=== PATIENT | female | born 1960 | race African-American/Black ===

== ENCOUNTER 2017-05-21 03:45 | Inpatient (IN) | payer OTHER, SELFPAY ==
[2017-05-21 04:36] LABS: #Basophils 0.1 thou/uL (0.0-0.2); #Eosinphils 0.2 thou/uL (0.0-0.7); #Lymphocytes 2.8 thou/uL (1.20-3.40); #Monocytes 0.6 thou/uL (0.11-0.59); #Neutrophils 4.1 thou/uL (1.40-6.50); %Basophils 0.9 % (0.0-1.0); %Eosinophils 2.5 % (0.0-10.0); %Monocytes 7.6 % (0.0-10.0); Hematocrit 32.6 % (36.0-47.0); Mean Platelet Volume 6.7 fL (7.4-10.4); Red Blood Cell (RBC) Count 3.63 mill/uL (4.20-5.40); White Blood Cell (WBC) Count 7.7 thou/uL (4.8-10.8)
[2017-05-21 04:58] LABS: ALT (SGPT) 10 U/L (8-55); AST (SGOT) 10 U/L (5-34); Alkaline Phosphatase 80 U/L (40-150); Anion Gap 12 mmol/L (10-20); BUN (Urea Nitrogen) 17 mg/dL (9.8-20.1); Bilirubin, Total 0.3 mg/dL (0.2-1.2); Calc. Creatinine Clearance 0 mL/min (70-130); Calcium 9.3 mg/dL (7.8-10.44); Carbon Dioxide 27 mmol/L (22-29); Chloride 105 mmol/L (98-107); Estimated GFR-MDRD 74; Protein, Total 7.7 g/dL (6.0-8.3)
[2017-05-21 05:03] LABS: Troponin I Less than 0.010 ng/mL (< 0.028)
[2017-05-21] MEDS ORDERED: Furosemide 40 MG/4 ML VIAL ONE (05:12)
[2017-05-21] MEDS ORDERED: Nitroglycerin 0.4 MG TAB (25 Tab Bottle) ONE (05:12)
[2017-05-21] MEDS ORDERED: Nitroglycerin 2% Ointment 1 INCH/1 GM Packet ONE (05:12)
[2017-05-21] MEDS ORDERED: hydrALAZINE 20 MG/ML VIAL ONE (06:31)
--- NOTE | 2017-05-21 06:54 | HP ---
DATE OF ADMISSION: 05/21/2017 PRIMARY CARE PHYSICIAN: [facility] (Linda Avalos NP). CHIEF COMPLAINT: Shortness of breath. HISTORY OF PRESENT ILLNESS: Patient is a 56-year-old female with hypertension, diabetes mellitus type 2, dyslipidemia, and chronic low back pain on nonsteroidal anti-inflammatory drugs, presented to the emergency room with shortness of breath with bilateral lower extremity swelling of 1 week duration. Over the last one week, the patient developed gradual worsening of shortness of breath along with leg swelling and abdominal distention. Currently, the patient uses 5 pillows to sleep. The shortness of breath is worse on lying down. Patient denies any excessive fluid intake. Her maximum fluid intake in a day is around 70-80 ounce. She denies recent immobilization. She recently came from [place]. She used to be on Lasix last year; however, that was discontinued by her primary care physician. No chest pain, palpitations, lightheadedness, dizziness reported. In the emergency room, initial vital signs showed temperature 98.2, respirations 18, pulse of 77, blood pressure 207/82 with O2 saturation 90 on room air that improved with O2 supplementation. Chest x-ray showed pulmonary vascular congestion. Her EKG showed sinus rhythm with left ventricular hypertrophy. She received 80 mg IV Lasix with aspirin, sublingual nitroglycerin and 1 inch nitro patch was placed. PAST MEDICAL HISTORY: 1. Diabetes mellitus type 2. 2. Hypertension. 3. Dyslipidemia. 4. Chronic low back pain on Aleve on a daily basis. 5. Obesity. 6. Mild coronary artery disease. The patient had a cardiac catheterization in 2010 that showed 20%-30% stenosis in the LAD, 20%-30% stenosis in the mid circumflex. RCA and left main was normal. Ejection fraction at that time was 50%-55%. PAST SURGICAL HISTORY: 1. Cardiac catheterization. 2. Carpal tunnel surgery. 3. Bilateral tubal ligation. 4. Appendectomy. ALLERGIES: Patient is allergic to: 1. CODEINE. 2. LISINOPRIL that causes cough. 3. ACTOS. CURRENT HOME MEDICATIONS: Levemir insulin 30 units in the morning, 40 at night ; aspirin 81 mg daily; metformin 1000 mg b.i.d.; amlodipine 10 mg daily; metoprolol 25 mg b.i.d.; Aleve on a daily basis. SOCIAL HISTORY: Patient currently lives at home with her spouse. No current use of tobacco, alcohol or drug use. FAMILY HISTORY: Mother with colon cancer, father with heart disease and hypertension. REVIEW OF SYSTEMS: The following complete review of systems was negative, unless otherwise mentioned in the HPI or below: Constitutional: Weight loss or gain, ability to conduct usual activities. Skin: Rash, itching. Eyes: Double vision, pain. ENT/Mouth: Nose bleeding, neck stiffness, pain, tenderness. Cardiovascular: Palpitations, dyspnea on exertion, orthopnea. Respiratory: Shortness of breath, wheezing, cough, hemoptysis, fever or night sweats. Gastrointestinal: Poor appetite, abdominal pain, heartburn, nausea, vomiting, constipation, or diarrhea. Genitourinary: Urgency, frequency, dysuria, nocturia. Musculoskeletal: Pain, swelling. Neurologic/Psychiatric: Anxiety, depression. Allergy/Immunologic: Skin rash, bleeding tendency. PHYSICAL EXAMINATION: VITAL SIGNS: As discussed above. GENERAL: A 56-year-old female with shortness of breath. Blood pressure at this time is 229/124. HEENT: Head is atraumatic, normocephalic. Sclerae are anicteric. Moist mucous membranes. No oral lesion. Patient is able to complete short phrases. NECK: Supple. No neck stiffness. Neck veins cannot be reliably assessed due to body habitus. LUNGS: Showed bibasilar crackles with scattered rhonchi. No wheezing. Lungs were symmetrical. HEART: S1, S2 present. Regular rate and rhythm. A 2/6 systolic murmur over the mitral area. ABDOMEN: Soft, obese, bowel sounds present. EXTREMITIES: A 3+ edema in bilateral lower extremities. No calf tenderness. Homans' sign was negative. SKIN: Warm and dry. LYMPH NODES: No palpable lymph nodes in the neck. PERIPHERAL VASCULAR: Radial pulses palpable bilaterally. MUSCULOSKELETAL: No joint swelling or tenderness. LABORATORY DATA AND X-RAY FINDINGS: CBC showed WBC 7.7 with hemoglobin 10.8, hematocrit 32.6, platelets 394. Chemistries showed sodium 140, potassium 4.1, chloride 105, bicarbonate 27, BUN 17, creatinine 0.94, glucose 164. BNP 210. Troponins were normal. EKG and chest x-ray by my review as discussed above. IMPRESSION: 1. Acute hypoxic respiratory failure secondary to acute on chronic congestive heart failure (new onset). Suspected diastolic. 2. Hypertensive crisis. 3. Diabetes mellitus type 2. 4. Hypertension. 5. Coronary artery disease. 6. Chronic low back pain. 7. Dyslipidemia. 8. Obesity, BMI to be calculated. 9. Chronic kidney disease stage 2. 10. Anemia, chronic. PLAN: The patient will be monitored on the telemetry unit as inpatient. The patient will require 3-4 days for stabilization. She is volume overloaded at this time. Volume restriction. We will repeat an echocardiogram. Hold metformin for now. Insulin sliding scale. Continue diuretics with nitropatch. We will add low dose losartan. Patient is unable to tolerate lisinopril due to cough. We will add low dose Procardia-XL. Change metoprolol to carvedilol for better blood pressure control. Deep venous thrombosis prophylaxis with Lovenox. Plan of care was discussed with the patient and the family at the bedside. They stated understanding. MTDD
[2017-05-21] MEDS ORDERED: Senokot 8.6 MG TAB PO PRN (08:12)
[2017-05-21] MEDS ORDERED: Calcium Carbonate 500 MG ChewTAB PO PRN (08:12)
[2017-05-21] MEDS ORDERED: cloNIDine 0.1 MG TAB PO PRN (08:12)
[2017-05-21] MEDS ORDERED: Ondansetron HCl/PF 4 MG/2 ML Vial IVP PRN (08:12)
[2017-05-21] MEDS ORDERED: Diabetic Tussin 200 MG/10 ML UDCUP PO PRN (08:12)
[2017-05-21] MEDS ORDERED: Eucerin (Mineral Oil/Petrolatum,White) 30 gm Jar TOP PRN (08:12)
[2017-05-21] MEDS ORDERED: Nitroglycerin 0.4 MG TAB (25 Tab Bottle) PO PRN (08:12)
[2017-05-21] MEDS ORDERED: Ondansetron ODT 4 MG TAB PO PRN (08:12)
[2017-05-21] MEDS ORDERED: Labetalol HCl 100 MG/20 ML VIAL SLOW IVP PRN (08:12)
[2017-05-21] MEDS ORDERED: hydrALAZINE 20 MG/ML VIAL SLOW IVP PRN (08:12)
[2017-05-21] MEDS ORDERED: Dextrose 5% in Water 1,000 ML IV PRN (08:12)
[2017-05-21] MEDS ORDERED: Dextrose 50% Abboject 50 ML SYRINGE SLOW IVP PRN (08:12)
[2017-05-21 08:55] LABS: Troponin I 0.024 ng/mL (< 0.028)
[2017-05-21] MEDS: Aspirin 81 mg Enteric Coated Tablet PO SCH (09:31)
[2017-05-21] MEDS: Docusate 100 MG CAP PO SCH ×2 (09:31→21:13)
[2017-05-21] MEDS: Carvedilol 6.25 MG TAB PO SCH ×2 (09:31→17:21)
[2017-05-21] MEDS: NIFEdipine XL 30 MG TAB PO SCH (09:32)
[2017-05-21] MEDS: Insulin Detemir 100 UNITS/ML 10 UNITS in Pre-Filled Syringe 1 EACH SC SCH ×2 (09:32→21:14)
[2017-05-21] MEDS: Losartan 25 MG TAB PO SCH (09:32)
--- NOTE | 2017-05-21 09:32 | RAD ---
UPRIGHT PORTABLE CHEST 1 VIEW: HISTORY: A 56-year-old female with a history of cough. Shortness of breath for 2 days. COMPARISON: 06/22/14. FINDINGS: Minimal cardiomegaly with bilateral vascular congestion without confluent pneumonia or overt edema. IMPRESSION: Cardiomegaly with bilateral vascular congestion. Continued short-term followup. POS: [facility]
[2017-05-21] MEDS: Famotidine 20 MG TAB PO SCH ×2 (09:33→21:13)
[2017-05-21 11:06] LABS: Troponin I Less than 0.010 ng/mL (< 0.028)
[2017-05-21] MEDS: Nitroglycerin 2% Ointment 1 INCH/1 GM Packet TOP SCH ×3 (12:15→23:45)
[2017-05-21] MEDS: Furosemide 40 MG/4 ML VIAL SLOW IVP SCH (14:31)
[2017-05-21] MEDS: Insulin Regular 300 UNITS/3 ML VIAL SC PRN ×2 (18:34→21:19)
[2017-05-21] MEDS ORDERED: FLU VACC QS2017-18 36 mo. & older 0.5 ML SYRINGE IM ONE (21:00)
[2017-05-21] MEDS ORDERED: Enoxaparin Sodium 40 MG/0.4 ML SYRINGE SC SCH (21:00)
[2017-05-21] MEDS: Acetaminophen 325 MG TAB PO PRN (23:45)
[2017-05-22] MEDS: Furosemide 40 MG/4 ML VIAL SLOW IVP SCH (05:24)
[2017-05-22] MEDS: Nitroglycerin 2% Ointment 1 INCH/1 GM Packet TOP SCH (05:24)
[2017-05-22 06:06] VITALS: BMI 37.6
[2017-05-22 06:06] LABS: Anion Gap 17 mmol/L (10-20); BUN (Urea Nitrogen) 20 mg/dL (9.8-20.1); Calc. Creatinine Clearance 86 mL/min (70-130); Calcium 8.4 mg/dL (7.8-10.44); Carbon Dioxide 25 mmol/L (22-29); Chloride 103 mmol/L (98-107); Estimated GFR-MDRD 60; Phosphorus 4.4 mg/dL (2.3-4.7)
--- NOTE | 2017-05-22 08:25 | PDOC.PN ---
- Subjective Encounter Start Date: 05/22/17 Encounter Start Time: 08:24 Patient seen and examined. No new complaints. No overnight events. SOB better. Ambulating in hallway. No CP. - Objective Resuscitation Status: Resuscitation Status FULL:Full Resuscitation MAR Reviewed: Yes Vital Signs & Weight: Vital Signs (12 hours) Temp Pulse Resp BP Pulse Ox 05/22/17 04:00 98.2 F 77 18 152/68 H 95 05/22/17 00:00 97.9 F 83 20 155/76 H 94 L Weight Weight 219 lb 4.8 oz I&O: 05/21/17 05/22/17 05/23/17 06:59 06:59 06:59 Intake Total 1860 Output Total 1700 Balance 160 Result Diagrams: 05/21/17 04:25 05/22/17 04:49 Additional Labs: Accuchecks 05/21/17 05/21/17 05/21/17 20:16 16:39 11:21 POC Glucose 270 H 199 H 165 H EKG Reviewed by me: Yes (Tele SR) Phys Exam - Physical Examination Constitutional: NAD Neck: no JVD Respiratory: no wheezing, no rhonchi Minimal rales at bases, Symmetrical Cardiovascular: RRR, no rub no heaves/pulsations Gastrointestinal: soft, non-tender, no distention, positive bowel sounds Musculoskeletal: edema present (improving.) Neurological: non-focal, normal sensation, moves all 4 limbs Psychiatric: normal affect, A&O x 3 Dx/Plan - Plan DVT proph w/lovenox, DVT proph w/SCDs IMPRESSION: 1. Acute hypoxic respiratory failure secondary to acute on chronic congestive heart failure (new onset). 2. Hypertensive crisis. 3. Diabetes mellitus type 2. 4. Hypertension. 5. Coronary artery disease. 6. Chronic low back pain. 7. Dyslipidemia. 8. Obesity, BMI 37.6 9. Chronic kidney disease stage 2. 10. Anemia, chronic. PLAN: * Change Lasix to PO * Cont Losartan * AM labs * Cont fluid restriction * CV team following * Cont sliding scale * Cont current meds as below * consult Cardiology for med optimization. * DC NTG patch Review of Systems - Review of Systems Respiratory: negative: Cough, Dry, Shortness of Breath, Hemoptysis, SOB with Excertion, Pleuritic Pain, Sputum, Wheezing Cardiovascular: negative: Chest Pain, Palpitations, Orthopnea, Paroxysmal Noc. Dyspnea, Edema, Light Headedness, Other Gastrointestinal: negative: Nausea, Vomiting, Abdominal Pain, Diarrhea, Constipation, Melena, Hematochezia, Other - Medications/Allergies Allergies/Adverse Reactions: Allergies Allergy/AdvReac Type Severity Reaction Status Date / Time codeine Allergy Verified 02/07/15 18:02 lisinopril Allergy COUGH Verified 02/07/15 18:02 pioglitazone HCl [From Actos] Allergy Verified 02/07/15 18:02 Medications: Current Medications Acetaminophen (Tylenol) 650 mg PO Q4H PRN PRN Reason: Headache/Fever or Pain Last Admin: 05/21/17 23:45 Dose: 650 mg Albuterol/Ipratropium (Duoneb) 3 ml NEB [id number] PRN PRN Reason: SOB &/or Wheezing Aspirin (Ecotrin) 81 mg PO DAILY [facility] Last Admin: 05/21/17 09:31 Dose: 81 mg Calcium Carbonate (Tums) 1,000 mg PO Q4H PRN PRN Reason: Heartburn or Indigestion Carvedilol (Coreg) 12.5 mg PO BID-[facility] Last Admin: 05/21/17 17:21 Dose: 12.5 mg Clonidine (Catapres) 0.1 mg PO Q4H PRN PRN Reason: Systolic BP > 180/ DBP >100 Dextrose/Water (Dextrose 50%) 25 gm SLOW IVP PRN PRN PRN Reason: Hypoglycemia Docusate Sodium (Colace) 100 mg PO BID [facility] Last Admin: 05/21/17 21:13 Dose: 100 mg Famotidine (Pepcid) 20 mg PO BID [facility] Last Admin: 05/21/17 21:13 Dose: 20 mg Furosemide (Lasix) 40 mg PO DAILY-[facility] Glucagon (Glucagon) 1 mg IM PRN PRN PRN Reason: Hypoglycemia Guaifenesin (Robitussin Sf) 200 mg PO Q4H PRN PRN Reason: Cough Hydralazine HCl (Apresoline) 10 mg SLOW IVP Q4H PRN PRN Reason: SBP Greater Than 180 Dextrose/Water (D5w) 1,000 mls @ 0 mls/hr IV .Q0M PRN; As Directed PRN Reason: Hypoglycemia Insulin Detemir 10 units/ (Miscellaneous Medication) 0.1 mls @ 0 mls/hr SC HS [facility] Last Admin: 05/21/17 21:14 Dose: 0.1 mls Insulin Detemir 10 units/ (Miscellaneous Medication) 0.1 mls @ 0 mls/hr SC QAM [facility] Last Admin: 05/21/17 09:32 Dose: 0.1 mls Insulin Human Regular (Humulin R) 0 units SC .MILD SLIDING SCALE PRN PRN Reason: Mild Correctional Scale Last Admin: 05/21/17 18:34 Dose: 2 unit Insulin Human Regular (Humulin R) 0 units SC .BEDTIME SLIDING SC PRN PRN Reason: Bedtime Correctional Scale Last Admin: 05/21/17 21:19 Dose: 3 unit Labetalol HCl (Normodyne) 10 mg SLOW IVP Q1H PRN PRN Reason: Systolic BP > 180 Losartan Potassium (Cozaar) 12.5 mg PO DAILY [facility] Last Admin: 05/21/17 09:32 Dose: 12.5 mg Mineral Oil/White Petrolatum (Eucerin Cream) 0 gm TOP BIDPRN PRN PRN Reason: Dry Skin Nifedipine (Procardia Xl) 30 mg PO DAILY [facility] Last Admin: 05/21/17 09:32 Dose: 30 mg Nitroglycerin (Nitrostat) 0.4 mg PO Q5MIN PRN PRN Reason: Chest Pain Ondansetron HCl (Zofran Odt) 4 mg PO Q6H PRN PRN Reason: Nausea/Vomiting Ondansetron HCl (Zofran) 4 mg IVP Q6H PRN PRN Reason: Nausea/Vomiting Senna (Senokot) 2 tab PO HSPRN PRN PRN Reason: Constipation
[2017-05-22] MEDS: Carvedilol 6.25 MG TAB PO SCH (09:09)
[2017-05-22] MEDS: Aspirin 81 mg Enteric Coated Tablet PO SCH (09:09)
[2017-05-22] MEDS: Losartan 25 MG TAB PO SCH (09:09)
[2017-05-22] MEDS: Docusate 100 MG CAP PO SCH ×2 (09:10→21:07)
[2017-05-22] MEDS: Insulin Detemir 100 UNITS/ML 10 UNITS in Pre-Filled Syringe 1 EACH SC SCH ×2 (09:10→21:07)
[2017-05-22] MEDS: Famotidine 20 MG TAB PO SCH ×2 (09:10→21:07)
[2017-05-22] MEDS: NIFEdipine XL 30 MG TAB PO SCH (09:10)
--- NOTE | 2017-05-22 09:25 | ULT ---
BILATERAL LOWER EXTREMITY VENOUS DOPPLER ULTRASOUND: Date: 05/22/17 HISTORY: Bilateral lower extremity edema TECHNIQUE: Pascal scale ultrasound with color flow and spectral Doppler imaging of the deep venous systems of the lower extremities was performed bilaterally. FINDINGS: There is good flow, compression, and augmentation noted in the common femoral, femoral, deep femoral , popliteal, posterior tibial, and greater saphenous veins on either side. IMPRESSION: No evidence of deep venous thrombosis in either lower extremity. POS: [facility]
[2017-05-22] MEDS ORDERED: Carvedilol 3.125 MG TAB PO SCH ×2 (10:00→21:00)
[2017-05-22] MEDS: Acetaminophen 325 MG TAB PO PRN (14:07)
--- NOTE | 2017-05-22 15:31 | CON ---
DATE OF CONSULTATION: 05/22/2017 REASON FOR CONSULTATION: Diastolic heart failure. HISTORY OF PRESENT ILLNESS: Ms. Figueroa is a 56-year-old woman who I have not seen and evaluated in over 5 years. She recently presented with congestive heart failure type symptoms. She has under gone echo Doppler and found to have a normal ejection fraction. She states she went to [place] and spent a week. There was significant dietary indiscretion while in [place]. No chest pain or pressure or other associated symptoms. She is now near her baseline afte r diuresis. PAST MEDICAL AND SURGICAL HISTORY: 1. Diabetes mellitus. 2. Hyperlipidemia. 3. Hypertension. 4. Previous angio showed congestion, mild coronary artery disease in 2010. 5. Carpal tunnel release. 6. Bilateral tubal ligation. 7. Appendectomy. ALLERGIES: CODEINE, LISINOPRIL, LACTOSE. HOME MEDICATIONS: Insulin, amlodipine, metoprolol, metformin, aspirin. SOCIAL HISTORY: No current tobacco, alcohol or drug use. REVIEW OF SYSTEMS: Ten point review of systems reviewed and otherwise negative. PHYSICAL EXAMINATION: VITAL SIGNS: Blood pressure 142/72, pulse 72, temperature afebrile. GENERAL: Patient is a pleasant female who is in no acute distress. The patient appears her stated a ge. NEUROLOGIC: The patient is alert and oriented times 3 with no focal neurologic deficits. HEENT: Sclerae without icterus. Mouth has moist mucous membranes with normal pallor. NECK: No JVD. Carotid upstroke brisk. No bruits bilaterally. LUNGS: Clear to auscultation with unlabored respirations. BACK: No scoliosis or kyphosis. CARDIAC: Regular rate and rhythm with normal S1 and S2. No S3 or S4 noted. No significant rubs, mu rmurs, thrills, or gallops noted throughout the precordium. PMI is not displaced. There is no para sternal heave. ABDOMEN: Soft, nontender, nondistended. No peritoneal signs present. No hepatosplenomegaly. No ab normal striae. EXTREMITIES: 2+ femoral and 2+ dorsalis pedis pulses. No cyanosis, clubbing, or edema. SKIN: No gross abnormalities. PERTINENT LABORATORY: Hemoglobin 10.8, hematocrit 32.6, creatinine 1.13, BNP 210. IMPRESSION: 1. Acute on chronic diastolic heart failure. 2. Hypertension. RECOMMENDATIONS: Ms. Figueroa has diuresed. She appears to be improving. At this point will add a low dose beta-sebastian therapy in addition to low dose spironolactone. There have been very few medi cines to assist with diastolic dysfunction with some evidence suggesting aldosterone antagonist ____ _, beta-sebastian may be beneficial. The Lasix has been switched to p.o. From my standpoint she is s table, it would be okay to discharge home in a.m. with close outpatient follow up.
[2017-05-22] MEDS: Insulin Regular 300 UNITS/3 ML VIAL SC PRN ×2 (16:59→21:07)
[2017-05-23 05:11] LABS: #Basophils 0.1 thou/uL (0.0-0.2); #Eosinphils 0.1 thou/uL (0.0-0.7); #Lymphocytes 2.3 thou/uL (1.20-3.40); #Monocytes 0.9 thou/uL (0.11-0.59); #Neutrophils 4.8 thou/uL (1.40-6.50); %Basophils 0.6 % (0.0-1.0); %Eosinophils 1.7 % (0.0-10.0); %Lymphocytes 28.4 % (21.0-51.0); %Monocytes 10.7 % (0.0-10.0); Hematocrit 31.8 % (36.0-47.0); Mean Platelet Volume 6.5 fL (7.4-10.4); White Blood Cell (WBC) Count 8.2 thou/uL (4.8-10.8)
[2017-05-23 05:33] LABS: Anion Gap 12 mmol/L (10-20); BUN (Urea Nitrogen) 17 mg/dL (9.8-20.1); BUN/Creatinine Ratio 15.74; Calc. Creatinine Clearance 90 mL/min (70-130); Calcium 8.6 mg/dL (7.8-10.44); Carbon Dioxide 27 mmol/L (22-29); Chloride 103 mmol/L (98-107); Estimated GFR-MDRD 63; Phosphorus 3.6 mg/dL (2.3-4.7)
[2017-05-23] MEDS ORDERED: Carvedilol 3.125 MG TAB PO SCH (07:05)
[2017-05-23] MEDS ORDERED: Losartan 25 MG TAB PO SCH ×2 (07:06→09:00)
[2017-05-23] MEDS ORDERED: Furosemide 40 MG TAB PO SCH (07:30)
[2017-05-23] MEDS ORDERED: Spironolactone 25 MG TAB PO SCH (08:00)
[2017-05-23 08:08] VITALS: BP 153/77; TEMP 98.8
--- NOTE | 2017-05-23 08:08 | PRG ---
DATE OF SERVICE: 05/23/2017 SUBJECTIVE: Ms. Figueroa has no new complaints. Blood pressure seems continued to be elevated, but improved. OBJECTIVE: VITAL SIGNS: Blood pressure 160/73, pulse 80, and temperature 99. LUNGS: Clear to auscultation. CARDIAC: Regular rate and rhythm. ABDOMEN: Soft, nontender, nondistended. EXTREMITIES: No edema. IMPRESSION: Acute on chronic diastolic heart failure. RECOMMENDATIONS: 1. Increase carvedilol and losartan. 2. Consider changing nifedipine to Norvasc. 3. Increase salt intake. I have no further recommendations from a CV standpoint. Recommend outpatient workup.
[2017-05-23] MEDS ORDERED: Carvedilol 6.25 MG TAB PO SCH (09:00)
[2017-05-23] MEDS: NIFEdipine XL 30 MG TAB PO SCH (09:13)
[2017-05-23] MEDS: Acetaminophen 325 MG TAB PO PRN (09:13)
[2017-05-23] MEDS: Famotidine 20 MG TAB PO SCH (09:13)
[2017-05-23] MEDS: Docusate 100 MG CAP PO SCH (09:14)
[2017-05-23] MEDS: Aspirin 81 mg Enteric Coated Tablet PO SCH (09:14)
[2017-05-23] MEDS: Insulin Detemir 100 UNITS/ML 10 UNITS in Pre-Filled Syringe 1 EACH SC SCH (09:15)
--- NOTE | 2017-05-23 11:17 | DIS ---
DATE OF DISCHARGE: 05/23/2017 DISCHARGE DISPOSITION: Home. FOLLOWUP: 1. Follow up with primary care physician at [facility] in 1 week. 2. Follow up with Dr. Garay in 2-3 weeks. 3. Follow up with [facility] as scheduled. ALLERGIES: The patient is allergic to CODEINE and LISINOPRIL that causes cough and ACTOS. DISCHARGE MEDICATIONS: 1. Carvedilol 6.25 mg b.i.d. 2. Lasix 40 mg daily as needed for edema. 3. Cozaar 25 mg daily. 4. Aldactone 12.5 mg daily. 5. Metformin 500 mg b.i.d. 6. Aspirin 81 mg daily. 7. Amlodipine 10 mg daily. INPATIENT CONSULTANTS: Cardiology, Dr. Garay. BRIEF HOSPITAL COURSE: The patient is a 56-year-old female with hypertension, diabetes mellitus typ e 2, dyslipidemia, and chronic low back pain on nonsteroidal anti-inflammatory drugs, presented to [facility] with shortness of breath. Please refer to the history and physical for further details. The patient was admitted to the hospital with the diagnosis of acute hypoxic respiratory failure s econdary to acute on chronic diastolic heart failure exacerbation. An echocardiogram was done that showed ejection fraction of 60-65% with moderate to severe dilated left atrium. Bilateral venous Do ppler was done on admission, which was negative. She showed good response with diuretics. She also had uncontrolled blood pressure on admission that improved. Today on the day of discharge, she joshua ears stable. She was seen and examined on the day of discharge. Her blood pressure is 153/77. Oli n of care was discussed with the patient. She stated understanding. She was extensively counseled on heart failure. FINAL DIAGNOSES: 1. Acute hypoxic respiratory failure. 2. Acute on chronic diastolic heart failure. 3. Hypertensive crisis. 4. Diabetes mellitus type 2. 5. History of hypertension. 6. Coronary artery disease with last cardiac catheterization in 2010. 7. Chronic low back pain. Patient was advised to discontinue nonsteroidal anti-inflammatory drugs. 8. Dyslipidemia. 9. Obesity with a BMI of 37.7. 10. Chronic kidney disease stage 2. 11. Chronic anemia. Plan of care was discussed with the patient. She stated understanding.
--- NOTE | 2017-07-07 15:00 | EKG ---
Test Reason : Blood Pressure : / mmHG Vent. Rate : 079 BPM Atrial Rate : 079 BPM P-R Int : 166 ms QRS Dur : 086 ms QT Int : 388 ms P-R-T Axes : 040 -04 032 degrees QTc Int : 444 ms Normal sinus rhythm Minimal voltage criteria for LVH, may be normal variant Borderline ECG Confirmed by CHERRIE HILTON, KATHYA Jensen ([id number]), electronic news gathering editor FRANCE BAJWA ([id number]) on 07/07/2017 2:59:48 PM Referred By: Confirmed By:KATHYA GRIER MD
== END 2017-05-23 11:33 | disposition home or self-care (01) | DRG 291 ==
LOC: ERS 03:45 → 2NO 05:09 → OBSVTOIN 05:09
PROVIDERS: ADMIT Internal Medicine; ATTEND Internal Medicine
DX: I13.0 Hypertensive heart and chronic kidney disease with heart failure and stage 1 through stage 4 chronic kidney disease, or unspecified chronic kidney disease (principal); I50.33 Acute on chronic diastolic (congestive) heart failure; J96.01 Acute respiratory failure with hypoxia; I16.9 Hypertensive crisis, unspecified; E11.22 Type 2 diabetes mellitus with diabetic chronic kidney disease; N18.2 Chronic kidney disease, stage 2 (mild); Z79.4 Long term (current) use of insulin; E78.5 Hyperlipidemia, unspecified; E66.9 Obesity, unspecified; Z68.37 Body mass index [BMI] 37.0-37.9, adult; I25.10 Atherosclerotic heart disease of native coronary artery without angina pectoris; D63.1 Anemia in chronic kidney disease; G89.29 Other chronic pain; M54.5 Low back pain; Z88.8 Allergy status to other drugs, medicaments and biological substances; Z79.1 Long term (current) use of non-steroidal anti-inflammatories (NSAID)
CPT/HCPCS: 36415; 36416; 71010; 80053; 80069; 82553; 83735; 83880; 84443; 84484; 85025; 90471; 90682; 90732; 93005; 93306; 93798; 93970; 96374; 96375; A4216; G0008; G0009; J0360; J1650; J1815; J1940; Q2036

== ENCOUNTER 2017-12-11 14:04 | Emergency (ER) | payer OTHER, SELFPAY ==
[2017-12-11 14:28] LABS: #Basophils 0.1 thou/uL (0.0-0.2); #Eosinphils 0.3 thou/uL (0.0-0.7); #Monocytes 0.8 thou/uL (0.11-0.59); #Neutrophils 4.8 thou/uL (1.40-6.50); %Basophils 0.9 % (0.0-1.0); %Eosinophils 2.9 % (0.0-10.0); %Lymphocytes 33.8 % (21.0-51.0); %Monocytes 8.4 % (0.0-10.0); Hemoglobin 10.5 g/dL (12.0-16.0); Mean Corpuscular HGB CONC 32.7 g/dL (32.0-36.0); Mean Corpuscular Hemoglobin 28.8 pg (27.0-31.0); Mean Corpuscular Volume 88.2 fl (81.0-99.0); Mean Platelet Volume 6.2 fL (7.4-10.4); Platelet Count 414 thou/uL (130-400); RBC Distribution Width 12.6 % (11.5-14.5); Red Blood Cell (RBC) Count 3.63 mill/uL (4.20-5.40)
[2017-12-11] MEDS ORDERED: Lorazepam 2 MG/ML VIAL ONE (14:31)
[2017-12-11] MEDS ORDERED: Meclizine HCl 25 MG TAB ONE (14:32)
[2017-12-11] MEDS ORDERED: Dexamethasone 4 mg/ml Vial ONE (14:32)
[2017-12-11] MEDS ORDERED: Ondansetron ODT 8 MG TAB ONE (14:32)
[2017-12-11 14:51] LABS: ALT (SGPT) 10 U/L (8-55); AST (SGOT) 11 U/L (5-34); Albumin 3.9 g/dL (3.5-5.0); Alkaline Phosphatase 83 U/L (40-150); Anion Gap 12 mmol/L (10-20); BUN (Urea Nitrogen) 23 mg/dL (9.8-20.1); Bilirubin, Total 0.2 mg/dL (0.2-1.2); Calc. Creatinine Clearance 0 mL/min (70-130); Carbon Dioxide 23 mmol/L (22-29); Chloride 108 mmol/L (98-107); Estimated GFR-MDRD 62; Globulin 3.8 g/dL (2.4-3.5); Glucose 177 mg/dL (70-105); Protein, Total 7.7 g/dL (6.0-8.3); Sodium 139 mmol/L (136-145)
== END 2017-12-11 15:50 | disposition home or self-care (01) ==
LOC: ERS 14:04
DX: R42 Dizziness and giddiness (principal); E11.9 Type 2 diabetes mellitus without complications; I10 Essential (primary) hypertension; M10.9 Gout, unspecified; Z79.4 Long term (current) use of insulin; Z79.82 Long term (current) use of aspirin; Z79.899 Other long term (current) drug therapy
CPT/HCPCS: 36415; 80053; 85025; 93005; 96374; 96375; J1100; J2060

== ENCOUNTER 2017-12-13 16:21 | Emergency (ER) | payer SELFPAY | END 2017-12-13 16:44 | disposition home or self-care (01) | LOC: ERS 16:21 | DX: Z02.89 Encounter for other administrative examinations (principal); E11.9 Type 2 diabetes mellitus without complications; I11.0 Hypertensive heart disease with heart failure; I50.9 Heart failure, unspecified; M10.9 Gout, unspecified; Z79.4 Long term (current) use of insulin; Z79.82 Long term (current) use of aspirin; Z79.899 Other long term (current) drug therapy | CPT/HCPCS: 99281 ==

== ENCOUNTER 2017-12-26 19:27 | Emergency (ER) | payer SELFPAY ==
[2017-12-26 20:35] LABS: #Basophils 0.1 thou/uL (0.0-0.2); #Eosinphils 0.2 thou/uL (0.0-0.7); #Lymphocytes 3.2 thou/uL (1.20-3.40); #Monocytes 0.7 thou/uL (0.11-0.59); #Neutrophils 3.8 thou/uL (1.40-6.50); %Basophils 1.3 % (0.0-1.0); %Eosinophils 2.7 % (0.0-10.0); %Lymphocytes 39.9 % (21.0-51.0); %Monocytes 9.1 % (0.0-10.0); Hemoglobin 11.4 g/dL (12.0-16.0); Mean Corpuscular HGB CONC 33.5 g/dL (32.0-36.0); Mean Corpuscular Hemoglobin 29.1 pg (27.0-31.0); Mean Corpuscular Volume 86.8 fL (78.0-98.0); Mean Platelet Volume 6.1 fL (7.4-10.4); Platelet Count 385 thou/uL (130-400); RBC Distribution Width 12.6 % (11.5-14.5); Red Blood Cell (RBC) Count 3.91 mill/uL (4.20-5.40)
[2017-12-26] MEDS ORDERED: Furosemide 40 MG/4 ML VIAL ONE (20:36)
--- NOTE | 2017-12-26 20:53 | RAD ---
RADIOGRAPH CHEST 1 VIEW: 12/26/17 HISTORY: 57-year-old female with foot edema and history of congestive heart failure. FINDINGS: The thoracic aorta is tortuous and ectatic. There is no evidence of air space density, pneumothorax, or pulmonary edema. The lateral costophrenic angles are sharp. IMPRESSION: 1) No acute pulmonary findings. 2) Ectasia of thoracic aorta. caleb [] POS: [facility]
[2017-12-26 21:00] LABS: ALT (SGPT) 10 U/L (8-55); AST (SGOT) 12 U/L (5-34); Albumin 4.2 g/dL (3.5-5.0); Alkaline Phosphatase 87 U/L (40-150); Anion Gap 15 mmol/L (10-20); BUN (Urea Nitrogen) 34 mg/dL (9.8-20.1); Bilirubin, Total 0.3 mg/dL (0.2-1.2); Calc. Creatinine Clearance 0 mL/min (70-130); Calcium 9.5 mg/dL (7.8-10.44); Carbon Dioxide 27 mmol/L (22-29); Chloride 101 mmol/L (98-107); Estimated GFR-MDRD 43; Globulin 4.1 g/dL (2.4-3.5); Glucose 207 mg/dL (70-105); Potassium 4.5 mmol/L (3.5-5.1); Protein, Total 8.3 g/dL (6.0-8.3); Sodium 138 mmol/L (136-145)
== END 2017-12-26 22:08 | disposition home or self-care (01) ==
LOC: ERS 19:27
DX: R60.0 Localized edema (principal); E11.9 Type 2 diabetes mellitus without complications; I11.0 Hypertensive heart disease with heart failure; I50.9 Heart failure, unspecified; Z79.899 Other long term (current) drug therapy; Z79.82 Long term (current) use of aspirin; Z79.4 Long term (current) use of insulin
CPT/HCPCS: 36415; 71045; 80053; 85025; 93005; 96372; J1940

== ENCOUNTER 2018-01-14 09:16 | Emergency (ER) | payer SELFPAY ==
--- NOTE | 2018-01-14 11:11 | CT ---
CT OF HEAD NONCONTRAST: COMPARISON: 04/29/14. CLINICAL INDICATION: Right side otalgia and right neck pain. FINDINGS: There is normal size of ventricular system. Mild to moderate chronic microvascular ischemic disease is present. There is no intracranial hemorrhage, mass effect, or midline shift. No evidence of otom astoid effusion. Calvarium is intact. IMPRESSION: No acute intracranial abnormalities. POS: [facility]
[2018-01-14 11:21] LABS: #Basophils 0.1 thou/uL (0.0-0.2); #Eosinphils 0.3 thou/uL (0.0-0.7); #Lymphocytes 2.7 thou/uL (1.20-3.40); #Monocytes 0.6 thou/uL (0.11-0.59); #Neutrophils 3.7 thou/uL (1.40-6.50); %Basophils 0.9 % (0.0-1.0); %Eosinophils 3.5 % (0.0-10.0); %Lymphocytes 37.2 % (21.0-51.0); %Monocytes 8.3 % (0.0-10.0); Hemoglobin 11.4 g/dL (12.0-16.0); Mean Corpuscular HGB CONC 33.2 g/dL (32.0-36.0); Mean Corpuscular Hemoglobin 29.4 pg (27.0-31.0); Mean Corpuscular Volume 88.7 fL (78.0-98.0); Mean Platelet Volume 6.8 fL (7.4-10.4); Platelet Count 366 thou/uL (130-400); RBC Distribution Width 12.9 % (11.5-14.5); Red Blood Cell (RBC) Count 3.87 mill/uL (4.20-5.40); White Blood Cell (WBC) Count 7.3 thou/uL (4.8-10.8)
[2018-01-14 11:38] LABS: Anion Gap 16 mmol/L (10-20); BUN (Urea Nitrogen) 28 mg/dL (9.8-20.1); Calc. Creatinine Clearance 0 mL/min (70-130); Calcium 9.2 mg/dL (7.8-10.44); Carbon Dioxide 23 mmol/L (22-29); Chloride 104 mmol/L (98-107); Estimated GFR-MDRD 47; Glucose 289 mg/dL (70-105); Potassium 4.7 mmol/L (3.5-5.1); Sodium 138 mmol/L (136-145)
[2018-01-14] MEDS ORDERED: HYDROcodone/Acetaminophen 5/325 mg Tablet ONE (11:55)
== END 2018-01-14 13:30 | disposition home or self-care (01) ==
LOC: ERS 09:16
DX: H92.01 Otalgia, right ear (principal); N18.9 Chronic kidney disease, unspecified; E11.65 Type 2 diabetes mellitus with hyperglycemia; D64.9 Anemia, unspecified; I11.0 Hypertensive heart disease with heart failure; E11.9 Type 2 diabetes mellitus without complications; I50.9 Heart failure, unspecified; Z79.82 Long term (current) use of aspirin; Z79.899 Other long term (current) drug therapy; Z79.84 Long term (current) use of oral hypoglycemic drugs
CPT/HCPCS: 70450; 80048; 85025

== ENCOUNTER 2018-03-14 22:11 | Emergency (ER) | payer SELFPAY ==
[2018-03-14 23:46] LABS: #Basophils 0.1 thou/uL (0.0-0.2); #Eosinphils 0.3 thou/uL (0.0-0.7); #Lymphocytes 3.7 thou/uL (1.20-3.40); #Monocytes 0.9 thou/uL (0.11-0.59); #Neutrophils 5.3 thou/uL (1.40-6.50); %Eosinophils 3.1 % (0.0-10.0); %Lymphocytes 36.2 % (21.0-51.0); %Monocytes 8.8 % (0.0-10.0); Hemoglobin 10.7 g/dL (12.0-16.0); Mean Corpuscular HGB CONC 33.6 g/dL (32.0-36.0); Mean Corpuscular Hemoglobin 29.6 pg (27.0-31.0); Mean Corpuscular Volume 87.9 fL (78.0-98.0); Mean Platelet Volume 6.7 fL (7.4-10.4); Platelet Count 414 thou/uL (130-400); RBC Distribution Width 12.9 % (11.5-14.5); Red Blood Cell (RBC) Count 3.61 mill/uL (4.20-5.40); White Blood Cell (WBC) Count 10.3 thou/uL (4.8-10.8)
--- NOTE | 2018-03-14 23:49 | RAD ---
PA AND LATERAL CHEST X-RAY 03/14/18 HISTORY: Chest pain and congestion for three days. Shortness of breath. COMPARISON: 12/16/17 FINDINGS: The cardiac silhouette is mildly enlarged. The pulmonary vasculature is within normal limits. The melchor gs remain clear. Osseous structures are intact. There has been no significant interval change from pr ior exam. IMPRESSION: 1. No acute cardiopulmonary process. 2. Mild cardiomegaly. POS: [facility]
[2018-03-15 00:05] LABS: ALT (SGPT) 10 U/L (8-55); AST (SGOT) 13 U/L (5-34); Albumin 3.8 g/dL (3.5-5.0); Alkaline Phosphatase 87 U/L (40-150); Anion Gap 18 mmol/L (10-20); BUN (Urea Nitrogen) 42 mg/dL (9.8-20.1); Bilirubin, Total 0.2 mg/dL (0.2-1.2); CK (CPK) 251 U/L (29-168); Calc. Creatinine Clearance 0 mL/min (70-130); Calcium 8.8 mg/dL (7.8-10.44); Carbon Dioxide 21 mmol/L (22-29); Chloride 107 mmol/L (98-107); Estimated GFR-MDRD 35; Globulin 3.9 g/dL (2.4-3.5); Glucose 85 mg/dL (70-105); Potassium 4.5 mmol/L (3.5-5.1); Protein, Total 7.7 g/dL (6.0-8.3); Sodium 141 mmol/L (136-145)
[2018-03-15 00:07] LABS: CKMB 1.5 ng/mL (0-6.6); Troponin I Less than 0.010 ng/mL (< 0.028)
== END 2018-03-15 02:14 | disposition left against medical advice (07) ==
LOC: ERS 22:11
DX: Z53.21 Procedure and treatment not carried out due to patient leaving prior to being seen by health care provider (principal)
CPT/HCPCS: 36415; 71046; 80053; 82550; 82553; 84484; 85025; 93005

== ENCOUNTER 2018-08-26 06:32 | Emergency (ER) | payer SELFPAY ==
[2018-08-26] MEDS ORDERED: Acetaminophen 500 MG TAB ONE (06:49)
== END 2018-08-26 07:25 | disposition home or self-care (01) ==
LOC: ERS 06:32
DX: B34.9 Viral infection, unspecified (principal); R52 Pain, unspecified; I11.0 Hypertensive heart disease with heart failure; I50.9 Heart failure, unspecified; E11.9 Type 2 diabetes mellitus without complications; Z79.891 Long term (current) use of opiate analgesic; Z79.899 Other long term (current) drug therapy; Z79.82 Long term (current) use of aspirin; Z79.4 Long term (current) use of insulin
CPT/HCPCS: 87804; 99283

== ENCOUNTER 2019-07-17 07:20 | Emergency (ER) | payer SELFPAY ==
[2019-07-17 07:48] LABS: #Eosinphils 0.2 thou/uL (0.0-0.7); #Lymphocytes 2.6 thou/uL (1.20-3.40); #Monocytes 0.7 thou/uL (0.11-0.59); #Neutrophils 5.1 thou/uL (1.40-6.50); %Basophils 0.3 % (0.0-1.0); %Eosinophils 2.3 % (0.0-10.0); %Lymphocytes 30.4 % (21.0-51.0); %Monocytes 7.8 % (0.0-10.0); %Neutrophils 59.3 % (42.0-75.0); Hemoglobin 10.8 g/dL (12.0-16.0); Mean Corpuscular HGB CONC 33.9 g/dL (32.0-36.0); Mean Corpuscular Volume 88.4 fL (78.0-98.0); Mean Platelet Volume 6.1 fL (7.4-10.4); Platelet Count 373 thou/uL (130-400); RBC Distribution Width 12.4 % (11.5-14.5); Red Blood Cell (RBC) Count 3.59 mill/uL (4.20-5.40); White Blood Cell (WBC) Count 8.5 thou/uL (4.8-10.8)
--- NOTE | 2019-07-17 07:51 | RAD ---
Exam: Chest one view HISTORY:Dyspnea Comparison: 12/26/2017 FINDINGS: Cardiac silhouette: Normal Aorta: Unremarkable Pulmonary vessels: Normal Costophrenic angles: Clear LUNGS: No masses or consolidation. Pneumothorax: None Osseous abnormalities: None IMPRESSION: No acute cardiopulmonary process.
[2019-07-17 08:00] LABS: ALT (SGPT) 8 U/L (8-55); AST (SGOT) 9 U/L (5-34); Alkaline Phosphatase 91 U/L (40-110); Anion Gap 11 mmol/L (10-20); BUN (Urea Nitrogen) 27 mg/dL (9.8-20.1); Bilirubin, Total 0.2 mg/dL (0.2-1.2); Calc. Creatinine Clearance 0 mL/min (70-130); Calcium 9.4 mg/dL (7.8-10.44); Carbon Dioxide 28 mmol/L (22-29); Chloride 104 mmol/L (98-107); Estimated GFR-MDRD 48; Globulin 3.6 g/dL (2.4-3.5); Glucose 168 mg/dL (70-105); Potassium 4.4 mmol/L (3.5-5.1); Protein, Total 7.6 g/dL (6.0-8.3); Sodium 139 mmol/L (136-145)
[2019-07-17] MEDS ORDERED: Furosemide 20 MG/2 ML VIAL ONE (08:46)
== END 2019-07-17 09:00 | disposition home or self-care (01) ==
LOC: ERS 07:20
DX: I11.0 Hypertensive heart disease with heart failure (principal); I50.9 Heart failure, unspecified; E11.9 Type 2 diabetes mellitus without complications; Z79.82 Long term (current) use of aspirin; Z79.4 Long term (current) use of insulin; Z79.899 Other long term (current) drug therapy
CPT/HCPCS: 71045; 80053; 83880; 84484; 85025; 93005; 96374; J1940